=== PATIENT | female | born 1990 | race Caucasian/White ===

== ENCOUNTER 2016-07-26 21:30 | Inpatient (IN) | payer OTHER ==
[2016-07-26] MEDS ORDERED: AMPICILLIN 2 GM/100 ML BAG (PRE-DOCKED) IVPB ONE (22:00)
[2016-07-26] MEDS ORDERED: DEXTROSE 5%-LACTATED RINGERS 1,000 ML IV SCH (22:00)
[2016-07-26] MEDS ORDERED: DINOPROSTONE 10 MG VAGINAL SUPPOSITORY VG ONE (22:00)
[2016-07-27 00:30] LABS: BASOPHIL 0.4 % (0-2.0); EOSINOPHIL 2.9 % (0-4.5); MCH 25.1 pg (25.7-33.7); MEAN CELL VOLUME 78.4 fl (80-96); MEAN PLT VOLUME 10.9 fl (7.5-11.1); NEUTROPHILS 59.9 % (42.8-82.8); PLATELET COUNT 164 K/MM3 (134-434); RDW 14.7 % (11.6-15.6)
[2016-07-27 00:46] LABS: INR 0.96 (0.82-1.09); PROTHROMBIN TIME (PATIENT) 10.6 SEC (9.98-11.88)
[2016-07-27 00:49] LABS: ACTIVATED PTT 23.8 SECONDS (26.9-34.4)
[2016-07-27 00:56] LABS: ANION GAP 11 (8-16); BILIRUBIN,TOTAL 0.7 mg/dL (0.2-1.0); CALCIUM 8.8 mg/dL (8.5-10.1); CO2 22 mmol/L (21-32); COCKROFT - GAULT 0; CREATININE 0.5 mg/dL (0.55-1.02); GLUCOSE,RANDOM 73 mg/dL (74-106); SGOT/AST 22 U/L (15-37); SGPT/ALT 16 U/L (12-78)
[2016-07-27 00:57] LABS: ALK PHOS 187 U/L (45-117); TOT PROT 6.8 g/dl (6.4-8.2)
[2016-07-27] MEDS ORDERED: PROMETHAZINE HCL 25 MG/1 ML VIAL IVPUSH ONE (01:23)
[2016-07-27] MEDS ORDERED: BUTORPHANOL TARTRATE 1 MG/ML VIAL IVPB ONE (01:23)
[2016-07-27] MEDS ORDERED: ELECTROLYTE-148 SOLN 1,000 ML IV SCH (01:30)
[2016-07-27] MEDS ORDERED: OXYTOCIN 15 UNITS/ LR 250 ML 250 ML IVPB SCH (01:30)
--- NOTE | 2016-07-27 01:33 | HP ---
Past Medical History - Admission Chief Complaint: Postdates History of Present Illness: 25 yo @ 40+ weeks gestation, admitted for IOL. She denies any vaginal bleeding nor ROM. History Source: Patient Limitations to Obtaining History: No Limitations - Past Medical History ...: 2 ...Para: 1 ...EDC by Izaiah: 07/26/16 - Past Surgical History Past Surgical History: Yes: None Hx Myomectomy: No Hx Transabdominal Cerclage: No - Smoking History Smoking history: Never smoked Have you smoked in the past 12 months: No - Alcohol/Substance Use Hx Alcohol Use: No History of Substance Use: reports: None - Social History Usual Living Arrangement: Yes: With Spouse History of Recent Travel: No Home Medications - Allergies Allergies/Adverse Reactions: Allergies Allergy/AdvReac Type Severity Reaction Status Date / Time No Known Allergies Allergy Verified 07/27/16 00:24 - Home Medications Home Medications: Ambulatory Orders Vit Calc,Iron,Folic [ Vitamins] 1 each PO DAILY 07/27/16 Family Disease History - Family Disease History Family History: Unremarkable Review of Systems - Review of Systems Constitutional: reports: No Symptoms Eyes: reports: No Symptoms HENT: reports: No Symptoms Neck: reports: No Symptoms Cardiovascular: reports: No Symptoms Respiratory: reports: No Symptoms Gastrointestinal: reports: No Symptoms Genitourinary: reports: Pain Breasts: reports: No Symptoms Reported Musculoskeletal: reports: No Symptoms Integumentary: reports: No Symptoms Neurological: reports: No Symptoms Endocrine: reports: No Symptoms Hematology/Lymphatic: reports: No Symptoms Psychiatric: reports: No Symptoms Pain Intensity: 3 Physical Exam - Maternity Vital Signs: Vital Signs Temperature 97.8 F 07/27/16 00:00 Pulse Rate 95 H 07/27/16 00:00 Respiratory Rate 20 07/27/16 00:00 Blood Pressure 115/83 07/27/16 00:00 O2 Sat by Pulse Oximetry (%) Constitutional: Yes: Well Nourished Eyes: Yes: Conjunctiva Clear HENT: Yes: Atraumatic Neck: Yes: Supple Cardiovascular: Yes: Regular Rate and Rhythm Lungs: Clear to auscultation - Abdominal Exam/OB Number of Fetuses: Single Presentation: Vertex Contractions: Yes Regularity: Irregular - Vaginal Exam/OB Vaginal Bleediing: No Dilatation (cm): 1 Effacement (%): 70 Amniotic Membrane Status: Intact Presentation: Vertex/Position Station: -3 - Physical Exam Integumentary: Yes: WNL - Labs Lab Results: CBC, BMP 07/26/16 23:40 07/26/16 23:40 Assessment/Plan IUP @ 40 weeks Cervidil induction Re evaluate in 12 hrs or before if indicated
[2016-07-27 01:41] VITALS: BMI 23.9
[2016-07-27] MEDS ORDERED: AMPICILLIN (PRE-DOCKED) 1 GM/100 ML BAG IVPB SCH (02:00)
[2016-07-27] MEDS ORDERED: BISACODYL 10 MG SUPP.RECT RC PRN (04:20)
[2016-07-27] MEDS ORDERED: WITCH HAZEL 50% (TUCKS) 40 PAD/JAR PAD TP PRN (04:20)
[2016-07-27] MEDS ORDERED: BENZOCAINE 28 GM HEMORRHOIDAL OINTMENT TP PRN (04:20)
[2016-07-27] MEDS ORDERED: BENZOCAINE 20% 57 GM BOTTLE TP PRN (04:20)
[2016-07-27] MEDS ORDERED: METHYLERGONOVINE MALEATE 0.2 MG/1 ML AMP IM PRN (04:20)
--- NOTE | 2016-07-27 04:28 | PN ---
Delivery - Delivery Vaginal Delivery: Spontaneous Type of Anesthesia: Local Episiotomy/Laceration: 2nd degree EBL (cc): 500 Delivery, Single - Feeding Plan Initial Plan: Elected not to breastfeed exclusively throughout hospitalization Remarks - Remarks Remarks: Normal spontaneous vaginal delivery of a live infant boy over second degree laceration. Nose / Oopharynx suctioned @ perineum. Nuchal Cord x 1; clamped and cut. Placenta expelled spontaneously intact. Laceration repaired with 2.0 Chromic.
[2016-07-27] MEDS ORDERED: D5W-LR W/ 20 UNITS OXYTOCIN 1,000 ML IV SCH (04:30)
[2016-07-27] MEDS: IBUPROFEN 600 MG TABLET (FP) PO PRN ×2 (05:55→22:35)
[2016-07-27] MEDS: ACETAMINOPHEN 325 MG TABLET (FP) PO PRN ×2 (06:01→22:36)
[2016-07-27] MEDS ORDERED: TUBERCULIN PPD 5 TU/0.1ML SYRINGE (IN PATIENT USE ONLY) ID ONE (08:00)
[2016-07-27] MEDS: FERROUS SO4 325 MG TABLET (FP) PO SCH ×3 (08:30→17:11)
[2016-07-27] MEDS: PRENATAL VITAMINS W/ FOLIC ACID TABLET (FP) PO SCH (09:39)
[2016-07-28 06:48] LABS: BASOPHIL 0.3 % (0-2.0); EOSINOPHIL 1.8 % (0-4.5); MCH 25.5 pg (25.7-33.7); MCHC 32.4 g/dl (32.0-36.0); MEAN CELL VOLUME 78.6 fl (80-96); MEAN PLT VOLUME 10.6 fl (7.5-11.1); PLATELET COUNT 145 K/MM3 (134-434); RDW 14.5 % (11.6-15.6); WHITE BLOOD COUNT 13.7 K/mm3 (4.0-10.0)
--- NOTE | 2016-07-28 07:30 | PN ---
Post Note - Post Date of Delivery: 07/27/16 Post Day: 1 Vital Signs: Vital Signs - 24 hr 07/27/16 07/27/16 07/27/16 07:53 10:00 12:00 Temperature 97.8 F 99.0 F Pulse Rate 71 89 88 Respiratory 18 18 18 Rate Blood Pressure 105/68 113/66 101/64 07/27/16 07/27/16 07/27/16 14:00 18:00 22:00 Temperature 98.4 F 98.4 F 98.3 F Pulse Rate 80 117 H 86 Respiratory 18 18 18 Rate Blood Pressure 107/67 109/64 108/68 Labs: Laboratory Results - last 24 hr 07/26/16 07/26/16 07/26/16 23:40 23:40 23:40 WBC RBC Hgb Hct MCV MCHC RDW Plt Count MPV Neutrophils % Lymphocytes % Monocytes % Eosinophils % Basophils % RPR Titer Nonreactive Hep Bs Antigen Negative Rubella IgG Antibody 4.82 07/28/16 05:32 WBC 13.7 H RBC 2.96 L D Hgb 7.5 L D Hct 23.2 L D MCV 78.6 L MCHC 32.4 RDW 14.5 Plt Count 145 MPV 10.6 Neutrophils % 67.0 Lymphocytes % 26.7 Monocytes % 4.2 Eosinophils % 1.8 Basophils % 0.3 RPR Titer Hep Bs Antigen Rubella IgG Antibody - Subjective Subjective: No Complaints - Objective Afebrile: Yes Breast: Not engorged Abdomen: Soft Uterus: Fundus firm Vagina: Scant lochia Extremities: Non-tender - Assessment/Plan (1) Normal spontaneous vaginal delivery Assessment: S/P Normal Plan: Routine Care
[2016-07-28] MEDS: FERROUS SO4 325 MG TABLET (FP) PO SCH ×3 (09:25→17:48)
[2016-07-28] MEDS: PRENATAL VITAMINS W/ FOLIC ACID TABLET (FP) PO SCH (09:25)
[2016-07-28] MEDS ORDERED: MEPERIDINE HCL CARPU-JECT 50 MG/1 ML DISP.SYRIN ONE (11:35)
[2016-07-28] MEDS ORDERED: MEPERIDINE HCL CARPU-JECT 50 MG/1 ML DISP.SYRIN IM ONE (12:30)
[2016-07-28] MEDS: IBUPROFEN 600 MG TABLET (FP) PO PRN ×2 (14:29→21:39)
--- NOTE | 2016-07-28 14:40 | DS ---
[id number] Rate 18 07/28/16 09:31 Blood Pressure 95/56 07/28/16 09:31 O2 Sat by Pulse Oximetry (%) Constitutional: Yes: Well Nourished Eyes: Yes: Conjunctiva Clear HENT: Yes: Atraumatic Neck: Yes: Supple, Trachea Midline Cardiovascular: Yes: Regular Rate and Rhythm Respiratory: Yes: Regular, CTA Bilaterally Gastrointestinal: Yes: Normal Bowel Sounds Pelvis: Yes: WNL External Genitalia: Yes: Normal Vaginal Exam: Yes: Normal Cervix: Yes: Normal Uterus: Yes: Firm ....Post : Yes: Uterus firm, Moderate lochia serosa Musculoskeletal: Yes: WNL Extremities: Yes: WNL Neurological: Yes: Alert, Oriented ...Motor Strength: WNL Psychiatric: Yes: Alert, Oriented Labs: CBC, BMP 07/28/16 05:32 07/26/16 23:40 Delivery - Delivery Vaginal Delivery: Spontaneous Type of Anesthesia: Local Episiotomy/Laceration: 2nd degree EBL (cc): 500 Delivery, Single - Stages of Labor Date 1st Stage Initiatied: 07/27/16 Time 1st Stage Initiated: 01:30 Date 2nd Stage Initiated: 07/27/16 Time 2nd Stage Initiated: 02:55 Date of Delivery: 07/27/16 Time of Delivery: 03:13 Time Placenta Delivered: 03:25 - Condition of Infant 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 Present: Yes Name: Ammy Yin Infant Gender: Male Weight: 7 lb 5 oz Position: Right, OT Total Hours ROM (Hrs/Mins): [id number] - 1 Minute Total Score: 9 5 Minutes Total Score: 9 - Feeding Plan Initial Plan: Elected not to breastfeed exclusively throughout hospitalization Discharge Summary Reason For Visit: LABOR ADMIT Status post vaginal delivery Procedures: Principal: Normal spontaneous vaginal delivery Hospital Course: Routine care Condition: Good - Instructions Diet, Activity, Other Instructions: Regular diet No douching, no sexual intercourse x 6 weeks F/U with MD in 6 weeks Disposition: HOME - Home Medications Comprehensive Discharge Medication List: Ambulatory Orders Vit Calc,Iron,Folic [ Vitamins] 1 each PO DAILY 07/27/16
[2016-07-28] MEDS: ACETAMINOPHEN 325 MG TABLET (FP) PO PRN (21:38)
[2016-07-28] MEDS ORDERED: SENNOSIDES/DOCUSATE COMBO (SENNA PLUS) TABLET (UD) PO PRN (22:00)
[2016-07-29] MEDS: PRENATAL VITAMINS W/ FOLIC ACID TABLET (FP) PO SCH (09:04)
[2016-07-29] MEDS: FERROUS SO4 325 MG TABLET (FP) PO SCH ×2 (09:04→12:58)
[2016-07-29 09:50] VITALS: BP 111/64; PULSE 89; TEMP 97.3
== END 2016-07-29 13:10 | disposition home or self-care (01) | DRG 560 ==
LOC: JLDR 21:30 → J3W 07-27 20:31
PROVIDERS: ADMIT Obstetrics & Gynecology; ATTEND Obstetrics & Gynecology
PROC: 3E0P7GC Introduction of Other Therapeutic Substance into Female Reproductive, Via Natural or Artificial Opening (ICD-10-PCS; 2016-07-26)
PROC: 0KQM0ZZ Repair Perineum Muscle, Open Approach (ICD-10-PCS; principal; 2016-07-27)
PROC: 10E0XZZ Delivery of Products of Conception, External Approach (ICD-10-PCS; 2016-07-27)
PROC: 0W8NXZZ Division of Female Perineum, External Approach (ICD-10-PCS; 2016-07-27)
DX: O70.1 Second degree perineal laceration during delivery (principal); O48.0 Post-term pregnancy; Z3A.40 40 weeks gestation of pregnancy; Z37.0 Single live birth
CPT/HCPCS: 36415; 59409; 80053; 85025; 85610; 85730; 86593; 86762; 86850; 86900; 86901; 87340

== ENCOUNTER 2022-05-03 19:22 | Inpatient (IN) | payer OTHER ==
[2022-05-03] MEDS: DEXTROSE 5%-LACTATED RINGERS 1,000 ML IV SCH (20:00)
[2022-05-03 21:20] VITALS: BMI 25.3
[2022-05-03 21:24] LABS: BASO % 0.2 % (0-2.0); EOS % 0.8 % (0-4.5); HEMOGLOBIN 11.5 GM/dL (10.7-15.3); LYMPH % 23.2 % (8-40); MCH 29.4 pg (25.7-33.7); MCHC 33.9 g/dl (32.0-36.0); MEAN CELL VOLUME 86.9 fl (80-96); MEAN PLT VOLUME 9.2 fl (7.5-11.1); MONO % 7.7 % (3.8-10.2); NEUT % 68.1 % (42.8-82.8); PLATELET COUNT 196 10^3/uL (134-434); RBC 3.91 M/mm3 (3.60-5.2); RDW 14.7 % (11.6-15.6); WHITE BLOOD COUNT 10.1 K/mm3 (4.0-10.0)
[2022-05-03 21:32] LABS: INR 0.97 (0.83-1.09); PROTHROMBIN TIME (PATIENT) 11.2 SEC (9.7-13.0)
[2022-05-03 21:34] LABS: ACTIVATED PTT 24.4 SECONDS (25.2-36.5)
[2022-05-03 21:43] LABS: CALCIUM 9.6 mg/dL (8.5-10.1)
[2022-05-03 21:44] LABS: ALBUMIN 2.9 g/dl (3.4-5.0); BLOOD UREA NITROGEN 7.7 mg/dL (7-18)
[2022-05-03 21:48] LABS: BILIRUBIN,TOTAL 0.2 mg/dL (0.2-1); TOT PROT 6.4 g/dl (6.4-8.2)
[2022-05-03 21:51] LABS: CREATININE 0.4 mg/dL (0.55-1.3)
[2022-05-03] MEDS: MISOPROSTOL 100 MCG TABLET PV SCH (22:20)
[2022-05-04] MEDS: MISOPROSTOL 100 MCG TABLET PV SCH ×2 (01:58→12:42)
[2022-05-04] MEDS ORDERED: OXYTOCIN 20 UNITS in 0.9% NS 20 UNIT/1,000 ML INFUS.BAG IV ONE (02:49)
[2022-05-04] MEDS: DEXTROSE 5%-LACTATED RINGERS 1,000 ML IV SCH (03:45)
[2022-05-04] MEDS ORDERED: morphine SULFATE 4 MG/ML VIAL IVPB ONE ×2 (03:53→10:16)
[2022-05-04] MEDS ORDERED: OXYTOCIN 30 UNITS in 0.9% NS 30 UNIT/500 ML INFUS.BAG IVPB ONE (10:10)
[2022-05-04] MEDS ORDERED: OXYTOCIN 30 UNITS in 0.9% NS 30 UNIT/500 ML INFUS.BAG IVPB SCH (10:30)
[2022-05-04] MEDS ORDERED: BENZOCAINE 28 GM HEMORRHOIDAL OINTMENT TP PRN (11:55)
[2022-05-04] MEDS ORDERED: WITCH HAZEL 50% (TUCKS) 40 PAD/JAR PAD TP PRN (11:55)
[2022-05-04] MEDS ORDERED: ACETAMINOPHEN 325 MG TABLET (FP) PO PRN (11:55)
[2022-05-04] MEDS ORDERED: BENZOCAINE 20% 57 GM BOTTLE TP PRN (11:55)
[2022-05-04] MEDS ORDERED: OXYTOCIN 20 UNITS in 0.9% NS 20 UNIT/1,000 ML INFUS.BAG IV SCH (12:00)
[2022-05-04 12:56] LABS: CORD BASE EXCESS -4.5 mmol/L (0-2); CORD HCO3 21.2 mmHg (20-29); CORD PCO2 41.4 mmHg (30-78); CORD pH 7.328 (7.14-7.44)
[2022-05-04] MEDS: FERROUS SO4 325 MG TABLET (FP) PO SCH ×2 (17:09)
[2022-05-05] MEDS: IBUPROFEN 600 MG TABLET (FP) PO PRN ×3 (02:00→20:33)
[2022-05-05 09:21] LABS: BASO % 0.2 % (0-2.0); EOS % 1.2 % (0-4.5); HEMATOCRIT 32.3 % (32.4-45.2); HEMOGLOBIN 10.8 GM/dL (10.7-15.3); LYMPH % 16.4 % (8-40); MCHC 33.5 g/dl (32.0-36.0); MEAN CELL VOLUME 86.5 fl (80-96); MEAN PLT VOLUME 9.6 fl (7.5-11.1); MONO % 3.4 % (3.8-10.2); NEUT % 78.8 % (42.8-82.8); PLATELET COUNT 217 10^3/uL (134-434); RBC 3.73 M/mm3 (3.60-5.2); RDW 14.8 % (11.6-15.6); WHITE BLOOD COUNT 12.9 K/mm3 (4.0-10.0)
[2022-05-05] MEDS: FERROUS SO4 325 MG TABLET (FP) PO SCH ×3 (10:10→20:32)
[2022-05-05] MEDS: PRENATAL VITAMINS W/ FOLIC ACID TABLET (FP) PO SCH (10:11)
[2022-05-05] MEDS ORDERED: SENNOSIDES/DOCUSATE COMBO (SENNA PLUS) TABLET (UD) PO PRN (22:00)
[2022-05-06] MEDS: FERROUS SO4 325 MG TABLET (FP) PO SCH ×2 (09:00→12:58)
[2022-05-06] MEDS: PRENATAL VITAMINS W/ FOLIC ACID TABLET (FP) PO SCH (09:15)
[2022-05-06 09:50] VITALS: BP 112/64; PULSE 94; RESP 18; TEMP 98
== END 2022-05-06 14:20 | disposition home or self-care (01) | DRG 560 ==
LOC: JLDR 19:22 → J3W 05-04 12:40
PROVIDERS: ADMIT Obstetrics & Gynecology Maternal & Fetal Medicine; ATTEND Obstetrics & Gynecology Maternal & Fetal Medicine
PROC: 3E0P7VZ Introduction of Hormone into Female Reproductive, Via Natural or Artificial Opening (ICD-10-PCS; 2022-05-03)
PROC: 10E0XZZ Delivery of Products of Conception, External Approach (ICD-10-PCS; principal; 2022-05-04)
PROC: 0HQ9XZZ Repair Perineum Skin, External Approach (ICD-10-PCS; 2022-05-04)
PROC: 10907ZC Drainage of Amniotic Fluid, Therapeutic from Products of Conception, Via Natural or Artificial Opening (ICD-10-PCS; 2022-05-04)
DX: O48.0 Post-term pregnancy (principal); O36.5930 Maternal care for other known or suspected poor fetal growth, third trimester, not applicable or unspecified; O70.0 First degree perineal laceration during delivery; Z3A.40 40 weeks gestation of pregnancy; Z37.0 Single live birth; Z86.16 Personal history of COVID-19
CPT/HCPCS: 36415; 36600; 59409; 80053; 82803; 85025; 85610; 85730; 86780; 86850; 86900; 86901; 88307-TC; C9803-CS; U0003; U0005